=== PATIENT | male | born 1955 | race Caucasian/White ===

== ENCOUNTER 2018-11-12 07:33 | Day surgery (SDC) | payer BC ==
[2018-11-12 08:58] VITALS: BMI 35.4
[2018-11-12 11:23] VITALS: BP 145/81; PULSE 61; TEMP 98
--- NOTE | 2018-11-13 17:38 | PATH ---
Surgical Pathology Report Patient Name: DEVANTE LARIOS [facility]. Rec. #: [id number] /Age/Gender: 1955 (Age: 63) / M Account: [id number] Location: U-ENDOSCOPY Taken: 11/12/2018 Received: 11/12/2018 Reported: 11/13/2018 Physicians: Dionicio Lucas M.D. Specimen(s) Received A: BX DESCENDING COLON POLYP B: BX DISTAL TRANSVERSE COLON POLYP C: RECTAL POLYP Clinical History History of adenomatous polyp Postoperative diagnosis: Colon polyps Final Diagnosis A. DESCENDING COLON, POLYP, BIOPSY: HYPERPLASTIC POLYP. B. DISTAL TRANSVERSE COLON, POLYP, BIOPSY: TUBULAR ADENOMA. C. RECTAL POLYP, BIOPSY: HYPERPLASTIC POLYP. Electronically Signed Claudia Menendez M.D. Gross Description A. Received in formalin, labeled "descending colon polyp biopsy" are 2 aguirre, irregular portions of soft tissue measuring 0.4 and 0.6 cm. in greatest dimension. The specimens are submitted in toto in one cassette. B. Received in formalin, labeled "distal transverse colon polyp" are 2 aguirre, irregular portions of soft tissue measuring 0.2 and 0.3 cm. in greatest dimension. The specimens are submitted in toto in one cassette. C. Received in formalin, labeled "rectal polyp biopsy" are 2 aguirre, irregular portions of soft tissue measuring 0.2 and 1.0 cm. in greatest dimension. The specimens are submitted in toto in one cassette. 11/12/201811/12/2018
== END 2018-11-12 11:15 | disposition home or self-care (01) ==
LOC: JASU-ENDO 07:33
PROVIDERS: ATTEND Internal Medicine Gastroenterology
PROC: 0DBL8ZX Excision of Transverse Colon, Via Natural or Artificial Opening Endoscopic, Diagnostic (ICD-10-PCS; 2018-11-12)
PROC: 0DBP8ZX Excision of Rectum, Via Natural or Artificial Opening Endoscopic, Diagnostic (ICD-10-PCS; 2018-11-12)
PROC: 0DBM8ZX Excision of Descending Colon, Via Natural or Artificial Opening Endoscopic, Diagnostic (ICD-10-PCS; principal; 2018-11-12 09:30)
DX: Z12.11 Encounter for screening for malignant neoplasm of colon (principal); Z86.010 Personal history of colon polyps; D12.4 Benign neoplasm of descending colon; D12.3 Benign neoplasm of transverse colon; K62.1 Rectal polyp; K64.8 Other hemorrhoids; K57.30 Diverticulosis of large intestine without perforation or abscess without bleeding; Z98.0 Intestinal bypass and anastomosis status
CPT/HCPCS: 88305-TC

== ENCOUNTER 2020-09-15 15:08 | Emergency (ER) | payer BC | END 2020-09-15 15:17 | disposition home or self-care (01) | LOC: JVIRT 15:08 | DX: Z03.818 Encounter for observation for suspected exposure to other biological agents ruled out (principal) | CPT/HCPCS: C9803; Q3014-GT; U0003 ==

== ENCOUNTER 2021-08-16 09:03 | Inpatient (IN) | payer BC ==
[2021-08-16] MEDS ORDERED: ASPIRIN 81 MG CHEWABLE TABLETS PO ONE (09:25)
[2021-08-16 10:09] LABS: BASO % 1.5 % (0-2.0); EOS % 5.1 % (0-4.5); HEMATOCRIT 47.7 % (35.4-49); HEMOGLOBIN 16.7 GM/dL (11.7-16.9); LYMPH % 14.8 % (8-40); MCH 32.3 pg (25.7-33.7); MEAN CELL VOLUME 92.2 fl (80-96); MEAN PLT VOLUME 9.2 fl (7.5-11.1); NEUT % 71.6 % (42.8-82.8); PLATELET COUNT 191 10^3/uL (134-434); RBC 5.17 M/mm3 (4.00-5.60); RDW 13.5 % (11.9-15.9); WHITE BLOOD COUNT 10.8 K/mm3 (4.0-10.0)
[2021-08-16 10:15] LABS: INR 0.94 (0.83-1.09)
[2021-08-16] MEDS ORDERED: ATORVASTATIN CA 80 MG TABLET (FP) PO ONE (10:15)
[2021-08-16] MEDS ORDERED: HEPARIN - 25,000 UNIT in SODIUM CHLORIDE 495 ML IV SCH (10:15)
[2021-08-16] MEDS ORDERED: HEPARIN NA (PORCINE) 5,000 UNITS/ML 1ML VIAL IVPUSH PRN ×2 (10:15)
[2021-08-16 10:17] LABS: CALCIUM 9.2 mg/dL (8.5-10.1)
[2021-08-16 10:19] LABS: ALBUMIN 3.5 g/dl (3.4-5.0); BLOOD UREA NITROGEN 13.9 mg/dL (7-18)
[2021-08-16 10:21] LABS: CREATININE 0.8 mg/dL (0.55-1.3)
[2021-08-16 10:24] LABS: BILIRUBIN,TOTAL 0.7 mg/dL (0.2-1); TOT PROT 7.3 g/dl (6.4-8.2)
[2021-08-16] MEDS ORDERED: HEPARIN INFUSION - 25,000 UNITS/500 ML INFUS.BAG IVPB ONE ×2 (10:25→14:52)
[2021-08-16] MEDS ORDERED: ATORVASTATIN CA 80 MG TABLET (FP) ONE (10:26)
[2021-08-16] MEDS: METOPROLOL TARTRATE 25 MG TABLET (FP) PO SCH ×2 (11:20→21:38)
[2021-08-16] MEDS ORDERED: CLOPIDOGREL BISULFATE 300 MG TABLET PO ONE (13:19)
[2021-08-16] MEDS ORDERED: HEPARIN NA (PORCINE) 5,000 UNITS/ML 1ML VIAL IVPUSH ONE (14:40)
[2021-08-16] MEDS ORDERED: HEPARIN INFUSION - 25,000 UNITS/500 ML INFUS.BAG IVPB SCH (15:00)
[2021-08-16 16:06] LABS: INR 1.08 (0.83-1.09)
[2021-08-16 16:23] LABS: ACTIVATED PTT > 400.0 SECONDS (25.2-36.5)
[2021-08-16 18:24] LABS: INR 1.08 (0.83-1.09); PROTHROMBIN TIME (PATIENT) 12.7 SEC (9.7-13.0)
[2021-08-16 18:27] LABS: ACTIVATED PTT 101.5 SECONDS (25.2-36.5)
[2021-08-16 20:41] VITALS: BMI 37.8
[2021-08-16] MEDS ORDERED: FLU VACC QS2021-22(6MOS UP)/PF 60 MCG/0.5 ML SYRINGE IM ONE (20:41)
[2021-08-16 21:23] LABS: LIPASE 689 U/L (73-393)
[2021-08-16 21:49] LABS: INR 1.04 (0.83-1.09); PROTHROMBIN TIME (PATIENT) 12.2 SEC (9.7-13.0)
[2021-08-16] MEDS ORDERED: MUPIROCIN 2% TOPICAL OINTMENT FOR DECOLONIZATION NS SCH (22:00)
[2021-08-16] MEDS ORDERED: CHLORHEXIDINE GLUCONATE 4% CLEANSER FOR DECOLONIZATION TP SCH (22:00)
[2021-08-16 22:09] LABS: BLOOD UREA NITROGEN 12.9 mg/dL (7-18); CALCIUM 9.5 mg/dL (8.5-10.1)
[2021-08-16 22:13] LABS: CREATININE 0.8 mg/dL (0.55-1.3)
[2021-08-17 06:45] LABS: BASO % 0.6 % (0-2.0); EOS % 3.3 % (0-4.5); HEMATOCRIT 43.9 % (35.4-49); HEMOGLOBIN 15.4 GM/dL (11.7-16.9); LYMPH % 14.6 % (8-40); MCH 32.4 pg (25.7-33.7); MCHC 34.9 g/dl (32.0-35.9); MEAN CELL VOLUME 92.7 fl (80-96); MEAN PLT VOLUME 9.8 fl (7.5-11.1); MONO % 7.5 % (3.8-10.2); PLATELET COUNT 193 10^3/uL (134-434); RBC 4.74 M/mm3 (4.00-5.60); RDW 13.3 % (11.9-15.9)
[2021-08-17] MEDS ORDERED: ACETAMINOPHEN 325 MG TABLET (FP) PO ONE (07:48)
[2021-08-17 08:10] VITALS: BP 154/81; PULSE 56
[2021-08-17] MEDS ORDERED: ACETAMINOPHEN 325 MG TABLET (FP) ONE (08:12)
[2021-08-17] MEDS: METOPROLOL TARTRATE 25 MG TABLET (FP) PO SCH (09:19)
[2021-08-17] MEDS ORDERED: ASPIRIN COATED 81 MG TABLET.EC PO SCH (10:00)
[2021-08-17] MEDS ORDERED: ENALAPRIL MALEATE 10 MG TABLET PO SCH ×2 (10:00)
[2021-08-17] MEDS ORDERED: CLOPIDOGREL BISULFATE 75 MG TABLET (FP) PO SCH (10:00)
[2021-08-17] MEDS ORDERED: MUPIROCIN 2% TOPICAL OINTMENT FOR DECOLONIZATION NS SCH (10:00)
[2021-08-17 12:58] VITALS: TEMP 98
[2021-08-17] MEDS ORDERED: CHLORHEXIDINE GLUCONATE 4% CLEANSER FOR DECOLONIZATION TP SCH (22:00)
== END 2021-08-17 12:35 | disposition short-term general hospital (02) | DRG 282 ==
LOC: JER 09:03 → JERBED 11:58 → JICU 20:09
PROVIDERS: ATTEND Internal Medicine Pulmonary Disease
DX: I24.9 Acute ischemic heart disease, unspecified (principal); I21.4 Non-ST elevation (NSTEMI) myocardial infarction; R07.89 Other chest pain; I10 Essential (primary) hypertension; E78.5 Hyperlipidemia, unspecified; T45.511A Poisoning by anticoagulants, accidental (unintentional), initial encounter; G47.33 Obstructive sleep apnea (adult) (pediatric); Y92.230 Patient room in hospital as the place of occurrence of the external cause; Z82.49 Family history of ischemic heart disease and other diseases of the circulatory system; E66.9 Obesity, unspecified; Z68.37 Body mass index [BMI] 37.0-37.9, adult
CPT/HCPCS: 36415; 71045-TC-FY; 80048; 80053; 82550; 82553; 83036; 83690; 83735; 84443; 84484; 85025; 85610; 85730; 86850; 86900; 86901; 90686; 93005; 93010; 93306-TC; 99291; C9803; G0008; J1644; U0003; U0005

== ENCOUNTER 2021-10-18 13:42 | Emergency (ER) | payer BC ==
[2021-10-18 13:51] VITALS: BMI 35.1
[2021-10-18 18:30] VITALS: BP 132/75; PULSE 86; TEMP 99.1
== END 2021-10-18 18:30 | disposition home or self-care (01) ==
LOC: JCOVINFU 13:42 → JER 13:42
DX: U07.1 COVID-19 (principal)
CPT/HCPCS: 71046-TC-FY; 99284-25; Q0245

== ENCOUNTER 2022-05-17 04:29 | Day surgery (SDC) | payer BC ==
[2022-05-16 10:07] VITALS: BMI 34.0
[2022-05-17] MEDS ORDERED: LIDOCAINE 1% P/F 10 MG/ML VIAL INF ONE (12:51)
[2022-05-17 13:57] VITALS: BP 144/75; PULSE 54; TEMP 98
== END 2022-05-17 14:01 | disposition home or self-care (01) ==
LOC: JASU-SURG 04:29
PROVIDERS: ATTEND Pain Medicine Pain Medicine
PROC: 01HY3MZ Insertion of Neurostimulator Lead into Peripheral Nerve, Percutaneous Approach (ICD-10-PCS; principal; 2022-05-17 11:30)
DX: G89.4 Chronic pain syndrome (principal); M25.562 Pain in left knee
CPT/HCPCS: 64555; C1897

== ENCOUNTER 2022-09-05 08:09 | Day surgery (SDC) | payer BC ==
[2022-08-31 09:05] VITALS: BMI 34.0
[2022-09-05] MEDS ORDERED: SODIUM CHLORIDE 0.9% P/F 10 ML VIAL IJ ONE (08:30)
[2022-09-05] MEDS ORDERED: LIDOCAINE HCL 2% JELLY 11 ML TP ONE (08:30)
[2022-09-05] MEDS ORDERED: ceFAZolin SODIUM 1 GM VIAL ONE ×2 (08:30→12:37)
[2022-09-05] MEDS ORDERED: DEXAMETHASONE SOD PHOSPHATE 4 MG/1 ML VIAL ONE ×2 (08:31→12:37)
[2022-09-05] MEDS ORDERED: PROPOFOL 80 ML ONE (08:31)
[2022-09-05] MEDS ORDERED: ONDANSETRON 4 MG/2 ML VIAL ONE (08:31)
[2022-09-05] MEDS ORDERED: MIDAZOLAM HCL 2 MG/2 ML SINGLE DOSE VIAL ONE ×2 (08:40→11:46)
[2022-09-05] MEDS ORDERED: CELECOXIB 200 MG CAPSULE PO ONE (08:51)
[2022-09-05] MEDS ORDERED: TRANEXAMIC ACID 1000 MG/10 ML VIAL IVPUSH ONE (10:00)
[2022-09-05] MEDS ORDERED: CEFAZOLIN 2 GM in DEXTROSE 5%-WATER - 50 ML IVPB ONE (10:00)
[2022-09-05] MEDS ORDERED: TRANEXAMIC ACID 1000 MG/10 ML VIAL ONE ×3 (10:04→13:56)
[2022-09-05] MEDS ORDERED: LABETALOL HCL 5 MG/1 ML (100MG/20 ML VIAL) ONE (10:32)
[2022-09-05] MEDS ORDERED: FENTANYL CITRATE/PF 50 MCG/ML VIAL ONE (11:46)
[2022-09-05] MEDS ORDERED: BUPIVACAINE LIPOSOME/PF (EXPAREL) 266 MG/20 ML VIAL ONE (11:46)
[2022-09-05] MEDS ORDERED: BUPIVACAINE HCL 100 ML ONE (11:46)
[2022-09-05] MEDS ORDERED: ROPIVACAINE HCL 0.5% 30ML VIAL ONE (11:47)
[2022-09-05] MEDS ORDERED: KETOROLAC TROMETHAMINE 60 MG/2 ML VIAL ONE (11:47)
[2022-09-05] MEDS ORDERED: MAG HYDROX/AL HYDROX/SIMETH 30 ML UNIT-DOSE CUP PO PRN (12:25)
[2022-09-05] MEDS ORDERED: ONDANSETRON 4 MG/2 ML VIAL IVPUSH PRN (12:25)
[2022-09-05] MEDS ORDERED: MAGNESIUM HYDROX 2400MG/30ML ORAL SUSPENSION 30 ML CUP PO PRN (12:25)
[2022-09-05] MEDS ORDERED: LACTATED RINGERS SOLUTION 1,000 ML IV SCH (12:30)
[2022-09-05] MEDS ORDERED: oxyCODONE HCL 5 MG TABLET PO PRN ×2 (14:07)
[2022-09-05] MEDS ORDERED: ACETAMINOPHEN 500 MG TABLET (FP) PO SCH (15:00)
[2022-09-05] MEDS ORDERED: KETOROLAC TROMETHAMINE 30 MG/1 ML VIAL ONE (15:07)
[2022-09-05] MEDS ORDERED: ACETAMINOPHEN 500 MG TABLET (FP) ONE (15:15)
[2022-09-05] MEDS ORDERED: KETOROLAC TROMETHAMINE 30 MG/1 ML VIAL IVPUSH SCH ×2 (18:00→21:00)
[2022-09-05] MEDS: ACETAMINOPHEN 500 MG TABLET (FP) PO SCH (20:30)
[2022-09-05] MEDS: CEFAZOLIN SODIUM 2 GM in DEXTROSE 5%-WATER 100 ML IVPB SCH (20:30)
[2022-09-05] MEDS: GABAPENTIN 300 MG CAPSULE PO SCH (21:16)
[2022-09-05] MEDS: oxyCODONE HCL 10 MG SUSTAINED ACTING TABLET PO SCH (21:16)
[2022-09-05] MEDS: SENNOSIDES/DOCUSATE COMBO (SENNA PLUS) TABLET (UD) PO SCH (21:16)
[2022-09-05] MEDS: FAMOTIDINE 20 MG TABLET PO SCH (21:17)
[2022-09-05] MEDS ORDERED: LOSARTAN POTASSIUM 50 MG TABLET PO SCH (22:00)
[2022-09-05] MEDS ORDERED: ATORVASTATIN CA 80 MG TABLET (FP) PO SCH (22:00)
[2022-09-05] MEDS ORDERED: TICAGRELOR 90 MG TABLET PO SCH (22:00)
[2022-09-05] MEDS ORDERED: TELMISARTAN 40 MG PO SCH (22:00)
[2022-09-05] MEDS ORDERED: ASPIRIN 81 MG CHEWABLE TABLETS PO SCH ×2 (22:00)
[2022-09-05] MEDS ORDERED: ACETAMINOPHEN 1000 MG/100 ML BAG IVPB SCH (23:00)
[2022-09-06] MEDS: ACETAMINOPHEN 500 MG TABLET (FP) PO SCH ×3 (04:00→15:10)
[2022-09-06] MEDS: CEFAZOLIN SODIUM 2 GM in DEXTROSE 5%-WATER 100 ML IVPB SCH (04:47)
[2022-09-06 08:14] VITALS: RESP 20
[2022-09-06] MEDS: FAMOTIDINE 20 MG TABLET PO SCH (09:12)
[2022-09-06] MEDS: SENNOSIDES/DOCUSATE COMBO (SENNA PLUS) TABLET (UD) PO SCH (09:12)
[2022-09-06] MEDS: oxyCODONE HCL 10 MG SUSTAINED ACTING TABLET PO SCH (09:12)
[2022-09-06] MEDS: GABAPENTIN 300 MG CAPSULE PO SCH (09:12)
[2022-09-06] MEDS ORDERED: ASPIRIN COATED 81 MG TABLET.EC PO SCH (10:00)
[2022-09-06] MEDS ORDERED: CHOLECALCIFEROL (VIT D3) 1,000 UNIT (25 MCG) TABLET PO SCH (10:00)
[2022-09-06] MEDS ORDERED: MULTIVITAMINS (DAILY MVI) TABLET (FP) PO SCH (10:00)
[2022-09-06 14:09] VITALS: BP 123/55; PULSE 56; TEMP 98
== END 2022-09-06 16:11 | disposition home or self-care (01) ==
LOC: FASUSAT 08:09 → FM/S 15:50 → FASUSAT 09-06 16:11
PROVIDERS: ATTEND Orthopaedic Surgery
PROC: 0SRD069 Replacement of Left Knee Joint with Oxidized Zirconium on Polyethylene Synthetic Substitute, Cemented, Open Approach (ICD-10-PCS; principal; 2022-09-05 12:54)
DX: M17.12 Unilateral primary osteoarthritis, left knee (principal)
CPT/HCPCS: 27447; C1776; 73560-TC-LT-FY; 88305-TC; 88311-TC; 94760; 97010-GP; 97116-GP; 97162-GP; C1889

== ENCOUNTER 2023-05-24 08:19 | Day surgery (SDC) | payer BC ==
[2023-05-15 12:03] VITALS: BMI 36.0
[2023-05-24] MEDS ORDERED: PROPOFOL 40 ML ONE ×2 (09:40→12:35)
[2023-05-24] MEDS ORDERED: ceFAZolin SODIUM 1 GM VIAL ONE (09:40)
[2023-05-24] MEDS ORDERED: TRANEXAMIC ACID 1000 MG/10 ML VIAL ONE (09:40)
[2023-05-24] MEDS ORDERED: MIDAZOLAM HCL 2 MG/2 ML SINGLE DOSE VIAL ONE ×2 (09:41→11:21)
[2023-05-24] MEDS ORDERED: BUPIVACAINE HCL/PF 0.5% (5MG/ML) 10 ML VIAL ONE (09:44)
[2023-05-24] MEDS ORDERED: MAGNESIUM HYDROX 2400MG/30ML ORAL SUSPENSION 30 ML CUP PO PRN (10:13)
[2023-05-24] MEDS ORDERED: MAG HYDROX/AL HYDROX/SIMETH 30 ML UNIT-DOSE CUP PO PRN (10:13)
[2023-05-24] MEDS ORDERED: oxyCODONE HCL 5 MG TABLET PO PRN ×2 (10:13)
[2023-05-24] MEDS ORDERED: ONDANSETRON 4 MG/2 ML VIAL IVPUSH PRN ×2 (10:13→13:47)
[2023-05-24] MEDS ORDERED: BUPIVACAINE LIPOSOME/PF (EXPAREL) 266 MG/20 ML VIAL ONE (10:30)
[2023-05-24] MEDS ORDERED: CEFAZOLIN 2 GM in DEXTROSE 5%-WATER - 50 ML IVPB ONE (11:00)
[2023-05-24] MEDS ORDERED: TRANEXAMIC ACID 1000 MG/10 ML VIAL IVPUSH ONE (11:00)
[2023-05-24] MEDS ORDERED: ONDANSETRON 4 MG/2 ML VIAL ONE (11:33)
[2023-05-24] MEDS ORDERED: DEXAMETHASONE SOD PHOSPHATE 4 MG/1 ML VIAL ONE (11:33)
[2023-05-24] MEDS ORDERED: LACTATED RINGERS SOLUTION 1,000 ML IV SCH (14:00)
[2023-05-24] MEDS ORDERED: GLYCOPYRROLATE 0.2 MG/1 ML VIAL ONE ×3 (14:05→17:01)
[2023-05-24] MEDS ORDERED: morphine SULFATE 4 MG/ML VIAL IVPUSH PRN (14:18)
[2023-05-24] MEDS ORDERED: ACETAMINOPHEN INJECTION 100 ML IVPB ONE (14:24)
[2023-05-24] MEDS: SODIUM CHLORIDE 1,000 ML IV SCH (16:19)
[2023-05-24] MEDS ORDERED: GLYCOPYRROLATE 1 MG/5 ML VIAL IVPB ONE (16:29)
[2023-05-24] MEDS ORDERED: GLYCOPYRROLATE 0.2 MG/1 ML VIAL IVPB ONE (17:00)
[2023-05-24] MEDS: oxyCODONE HCL 5 MG TABLET PO PRN ×2 (17:10→22:37)
[2023-05-24] MEDS: INSULIN SLIDING SCALE (NOVOLOG) 1 VIAL SQ SCH ×2 (17:12→22:58)
[2023-05-24] MEDS: CEFAZOLIN SODIUM 2 GM in DEXTROSE 5%-WATER 100 ML IVPB SCH (19:01)
[2023-05-24 20:04] VITALS: RESP 18
[2023-05-24] MEDS: ASPIRIN 81 MG CHEWABLE TABLETS PO SCH (21:04)
[2023-05-24] MEDS: ACETAMINOPHEN 500 MG TABLET (FP) PO SCH (21:04)
[2023-05-24] MEDS: CELECOXIB 100 MG CAPSULE PO SCH (21:05)
[2023-05-24] MEDS: FAMOTIDINE 20 MG TABLET PO SCH (21:05)
[2023-05-24] MEDS: SENNOSIDES/DOCUSATE COMBO (SENNA PLUS) TABLET (UD) PO SCH (21:06)
[2023-05-24] MEDS ORDERED: TELMISARTAN 40 MG PO SCH (22:00)
[2023-05-24] MEDS ORDERED: ATORVASTATIN CA 80 MG TABLET (FP) PO SCH (22:00)
[2023-05-24] MEDS ORDERED: ACETAMINOPHEN 1000 MG/100 ML BAG IVPB SCH (22:00)
[2023-05-24] MEDS ORDERED: LOSARTAN POTASSIUM 50 MG TABLET PO SCH (22:00)
[2023-05-25] MEDS: CEFAZOLIN SODIUM 2 GM in DEXTROSE 5%-WATER 100 ML IVPB SCH (03:19)
[2023-05-25] MEDS: ACETAMINOPHEN 500 MG TABLET (FP) PO SCH ×2 (04:00→09:23)
[2023-05-25] MEDS: oxyCODONE HCL 5 MG TABLET PO PRN ×4 (05:06→13:18)
[2023-05-25] MEDS: INSULIN SLIDING SCALE (NOVOLOG) 1 VIAL SQ SCH ×2 (05:59→11:45)
[2023-05-25] MEDS: ASPIRIN 81 MG CHEWABLE TABLETS PO SCH (09:12)
[2023-05-25] MEDS: CELECOXIB 100 MG CAPSULE PO SCH (09:12)
[2023-05-25] MEDS: FAMOTIDINE 20 MG TABLET PO SCH (09:12)
[2023-05-25] MEDS: SENNOSIDES/DOCUSATE COMBO (SENNA PLUS) TABLET (UD) PO SCH (09:13)
[2023-05-25] MEDS ORDERED: MULTIVITAMINS (DAILY MVI) TABLET (FP) PO SCH (10:00)
[2023-05-25] MEDS ORDERED: DEXAMETHASONE 4 MG TABLET (FP) PO ONE (10:00)
[2023-05-25] MEDS ORDERED: CHOLECALCIFEROL (VIT D3) 1,000 UNIT (25 MCG) TABLET PO SCH (10:00)
[2023-05-25] MEDS: SODIUM CHLORIDE 1,000 ML IV SCH (11:45)
[2023-05-25 13:54] VITALS: BP 130/78; PULSE 62; TEMP 98.5
[2023-05-25] MEDS ORDERED: CEPHALEXIN MONOHYDRATE 250 MG CAPSULE (FP) PO SCH (19:00)
== END 2023-05-25 15:53 | disposition home or self-care (01) ==
LOC: FASUSAT 08:19 → FM/S 15:19 → FASUSAT 05-25 15:53
PROVIDERS: ATTEND Orthopaedic Surgery
PROC: 0SRC0J9 Replacement of Right Knee Joint with Synthetic Substitute, Cemented, Open Approach (ICD-10-PCS; principal; 2023-05-24 11:37)
DX: M17.11 Unilateral primary osteoarthritis, right knee (principal)
CPT/HCPCS: 27447; C1776; 73560-TC-RT-FY; 82962; 94760; 97010-GP; 97116-GP; 97162-GP; C1889